=== PATIENT | male | born 1985 | race Caucasian/White ===

== ENCOUNTER 2021-05-29 15:10 | Emergency (ER) | payer MEDICAID ==
[~2021-05-29] VITALS: Ht 180.3 cm; Wt 90.0 kg
[2021-05-29] MEDS ORDERED: SODIUM CHLORIDE 0.9% 1,000 ML IV ONE (16:15)
[2021-05-29 17:09] LABS: BASOPHILS % 0.7 % (0.0-2.0); EOSINOPHILS % 3.4 % (0.0-5.0); HEMATOCRIT. 43.2 % (42.0-52.0); HEMOGLOBIN. 14.6 g/dL (14.0-18.0); MEAN CORPUSCULAR HEMOGLOBIN 30.8 pg (28.0-32.0); MEAN CORPUSCULAR VOLUME 91.3 fL (80.0-94.0); MEAN PLATELET VOLUME 7.5 fl (7.4-10.4); NEUTROPHILS % 67.9 % (40.0-76.0); PLATELET 248 x1000/uL (130-400); RED BLOOD CELL COUNT 4.73 mill/uL (4.7-6.1); RED CELL DISTRIBUTION WIDTH 12.7 % (11.6-14.6)
[2021-05-29 17:22] LABS: CHLORIDE 106 mEq/L (98-107)
[2021-05-29 17:26] LABS: ETHANOL BLOOD < 10 mg/dL
[2021-05-30 05:55] VITALS: BP 140/88
== END 2021-05-30 06:25 | disposition home or self-care (01) ==
LOC: EDBD 15:10 → ER 15:10
DX: G93.40 Encephalopathy, unspecified (principal); F99 Mental disorder, not otherwise specified; R03.0 Elevated blood-pressure reading, without diagnosis of hypertension; Z59.00 Homelessness unspecified
CPT/HCPCS: 36415; 70450; 71045; 80053; 80320; 82962; 85025; 99285; J7030; G0480

== ENCOUNTER 2021-11-25 14:24 | Emergency (ER) | payer MEDICAID ==
[~2021-11-25] VITALS: Ht 182.9 cm; Wt 91.0 kg
[2021-11-25 16:46] LABS: CLARITY URINE CLEAR (CLEAR); COLOR URINE YELLOW (YELLOW); KETONES URINE TRACE (NEGATIVE); LEUKOCYTE ESTERASE URINE NEGATIVE (NEGATIVE); NITRITE URINE NEGATIVE (NEGATIVE); OCCULT BLOOD URINE NEGATIVE (NEGATIVE); PH URINE 5.5 (4.5-8.0); PROTEIN URINE NEGATIVE (NEGATIVE)
[2021-11-25 17:18] LABS: *AMPHETAMINES SCREEN URINE NEGATIVE (NEGATIVE); *BARBITURATES SCREEN URINE NEGATIVE (NEGATIVE); *BENZODIAZEPINES SCREEN URINE NEGATIVE (NEGATIVE); *COCAINE SCREEN URINE NEGATIVE (NEGATIVE); CANNABINOID URINE SCREEN PRESUMTIVE POSITIVE (NEGATIVE); METHADONE URINE SCREEN NEGATIVE (NEGATIVE); OPIATES URINE SCREEN NEGATIVE (NEGATIVE); PHENCYCLIDINE URINE SCREEN NEGATIVE (NEGATIVE)
[2021-11-25 18:20] LABS: BASOPHILS % 0.6 % (0.0-2.0); EOSINOPHILS % 2.9 % (0.0-5.0); HEMATOCRIT. 40.2 % (42.0-52.0); HEMOGLOBIN. 13.6 g/dL (14.0-18.0); LYMPHOCYTES % 20.4 % (20.0-50.0); MEAN CORPUSCULAR HEMOGLOBIN 31.9 pg (28.0-32.0); MEAN CORPUSCULAR VOLUME 93.9 fL (80.0-94.0); MEAN PLATELET VOLUME 8.1 fl (7.4-10.4); MONOCYTES % 5.5 % (2.0-8.0); NEUTROPHILS % 70.6 % (40.0-76.0); PLATELET 288 x1000/uL (130-400); RED BLOOD CELL COUNT 4.28 mill/uL (4.7-6.1); RED CELL DISTRIBUTION WIDTH 12.6 % (11.6-14.6)
[2021-11-25 18:33] LABS: CHLORIDE 106 mEq/L (98-107)
[2021-11-25 18:42] LABS: ETHANOL BLOOD < 10 mg/dL
[2021-11-26] MEDS: QUETIAPINE FUMARATE 50MG TABLET PO SCH ×2 (11:45→22:00)
[2021-11-26] MEDS: FLUOXETINE HCL 10 MG CAPSULE PO SCH (17:20)
[2021-11-27] MEDS: QUETIAPINE FUMARATE 50MG TABLET PO SCH ×2 (08:48→21:52)
[2021-11-27] MEDS: FLUOXETINE HCL 10 MG CAPSULE PO SCH (08:48)
[2021-11-28] MEDS: QUETIAPINE FUMARATE 50MG TABLET PO SCH ×2 (08:55→22:29)
[2021-11-28] MEDS: FLUOXETINE HCL 10 MG CAPSULE PO SCH (08:55)
[2021-11-28 23:20] VITALS: BP 146/80
== END 2021-11-28 23:50 ==
LOC: ER 14:35
DX: R45.851 Suicidal ideations (principal); Z20.822 Contact with and (suspected) exposure to COVID-19; Z86.59 Personal history of other mental and behavioral disorders
CPT/HCPCS: 36415; 80053; 80305; 80307; 80320; 80329; 81003; 85025; 87426; 99285; C9803; U0003; U0005; Z7610; G0480